=== PATIENT | female | born 1950 ===

== ENCOUNTER → 2020-08-07 08:00 | Outpatient (CLI) | payer OTHER ==
[~2020-08-07] VITALS: Ht 167.6 cm; Wt 81.6 kg
[~2020-08-07 08:00] MED LIST: B12 ACTIVE1000 MCG PO; CLONAZEPAM2 M1 PO; D3 + K2 DOTS 11 EACH PO; FOLIC ACID20 MG PO; LEVO-T137 MCG PO; LIPITOR20 MG PO; PROZAC40 MG PO; SULINDAC200 MG PO; TREXALL5 MG PO
== END | disposition home or self-care (01) ==
LOC: LAB 08:00 → EDSTATUS 08-14 08:00 → SURH 08-14 08:00
PROVIDERS: ATTEND Orthopaedic Surgery
DX: M17.12 Unilateral primary osteoarthritis, left knee (principal); M85.662 Other cyst of bone, left lower leg; Z01.810 Encounter for preprocedural cardiovascular examination; I10 Essential (primary) hypertension